=== PATIENT | female | born 1955 | race Caucasian/White ===

== ENCOUNTER 2022-04-07 21:56 | Observation (INO) ==
[2022-04-07] MEDS ORDERED: Ipratropium/Albuterol Neb 3 ML IH ONE ×2 (22:10→23:38)
[2022-04-07] MEDS ORDERED: methylPREDNISolone 125 MG/2 ML VIAL IVP ONE (22:12)
[2022-04-08] MEDS ORDERED: Albuterol 2.5 MG/3 ML NEBULIZER IH PRN ×2 (01:45→04:21)
[2022-04-08 01:46] LABS: Basophils % 0.7 %; Hematocrit 40.7 % (35.3-44.9); Hemoglobin 13.7 g/dL (11.5-15.4); Immature Granulocytes % 0.2 % (0-4); Lymphocytes # 0.2 K/mcL (0.6-4.6); Lymphocytes % 3.7 %; Mean Corpuscular HGB Conc 33.7 g/dL (31.6-35.5); Mean Corpuscular Hemoglobin 30.1 pg (28.0-33.3); Mean Corpuscular Volume 89.5 fL (83.0-100.0); Mean Platelet Volume 10.1 fL (9.4-12.4); Monocytes # 0.1 K/mcL (0.0-1.3); Monocytes % 2.3 %; Neutrophils # 5.3 K/mcL (1.6-8.9); Platelet Count 159 K/mcL (140-400); Red Blood Count 4.55 M/mcL (3.82-4.97); Red Cell Distribution Width 13.2 % (11.5-14.5); Segmented Neutrophils % 93.1 %; White Blood Count 5.7 K/mcL (4.3-11.1)
[2022-04-08 02:01] LABS: BUN/Creatinine Ratio 14 (6-26); Blood Urea Nitrogen 9 mg/dL (8-23); Calcium 9.3 mg/dL (8.6-10.3); Carbon Dioxide 26 mEq/L (23-29); Chloride 99 mEq/L (98-107); Glucose 146 mg/dL (70-105); Osmolality,Calculated 277 (280-300); Potassium 3.5 mEq/L (3.5-5.1); Sodium 133 mEq/L (136-145); eGFR For African Americans > 60 (> 60); eGFR For Non-African Americans > 60 (> 60)
[2022-04-08] MEDS ORDERED: methylPREDNISolone 125 MG/2 ML VIAL IVP SCH ×2 (06:00→09:00)
[2022-04-08 08:04] LABS: Basophils % 0.5 %; Eosinophils % 0.2 %; Hematocrit 41.1 % (35.3-44.9); Hemoglobin 13.8 g/dL (11.5-15.4); Immature Granulocytes % 0.2 % (0-4); Lymphocytes # 0.2 K/mcL (0.6-4.6); Lymphocytes % 5.4 %; Mean Corpuscular HGB Conc 33.6 g/dL (31.6-35.5); Mean Corpuscular Hemoglobin 30.2 pg (28.0-33.3); Mean Corpuscular Volume 89.9 fL (83.0-100.0); Mean Platelet Volume 10.3 fL (9.4-12.4); Monocytes # 0.1 K/mcL (0.0-1.3); Monocytes % 2.2 %; Platelet Count 175 K/mcL (140-400); Red Blood Count 4.57 M/mcL (3.82-4.97); Red Cell Distribution Width 13.2 % (11.5-14.5); Segmented Neutrophils % 91.5 %; White Blood Count 4.1 K/mcL (4.3-11.1)
[2022-04-08 08:12] LABS: Neutrophils # 3.8 K/mcL (1.6-8.9)
[2022-04-08] MEDS: methylPREDNISolone 125 MG/2 ML VIAL IVP SCH ×3 (08:18→20:37)
[2022-04-08] MEDS ORDERED: Budesonide/Formoterol 160/4.5 1 PUFF INH IH SCH (09:00)
[2022-04-08] MEDS ORDERED: levoFLOXacin 500 MG TABLET PO SCH ×2 (09:00)
[2022-04-08] MEDS: Ipratropium/Albuterol Neb 3 ML IH SCH ×3 (10:13→20:38)
[2022-04-08] MEDS: Budesonide/Formoterol 160/4.5 1 PUFF INH IH SCH (10:14)
[2022-04-08] MEDS ORDERED: Ondansetron 4 MG/2 ML VIAL IVP PRN (10:34)
[2022-04-08] MEDS ORDERED: Ondansetron 4 MG/2 ML VIAL ONE (10:35)
[2022-04-08] MEDS ORDERED: Ondansetron ODT 4 MG TAB.RAPDIS SL PRN (10:35)
[2022-04-08] MEDS: levoFLOXacin 250 MG TABLET PO SCH (10:46)
[2022-04-08 12:15] LABS: Bilirubin,Urine Negative (Negative); Blood,Urine Large (Negative); Clarity,Urine Clear (Clear); Color,Urine Yellow (Yellow); Glucose,Urine (UA) Normal (Normal); Ketones,Urine 15 mg/dL (Negative); Leukocyte Esterase,Urine Negative (Negative); Nitrite,Urine Negative (Negative); PH,Urine 5.5 pH Units (5.0-8.0); Protein,Urine >=300 mg/dL (Neg-Trace); Specific Gravity,Urine >= 1.030 (1.010-1.025); Urobilinogen,Urine Normal (Normal)
[2022-04-08 12:22] LABS: Bacteria,Urine Moderate per hpf (None-Few); Mucus,Urine Many per lpf (None-Few); RBC,Urine 15-30 per hpf (0-3)
[2022-04-08 12:23] LABS: Squamous Epithelial Cell,Urine Moderate per hpf (None-Few)
[2022-04-08] MEDS ORDERED: Iopamidol - 370 500 ML MLS IVP ONE (13:46)
[2022-04-08 18:07] LABS: Estimated Average Glucose 108 mg/dl; Hemoglobin A1C 5.4 %
[2022-04-08 19:00] LABS: Adenovirus Not Detected (Not Detect); Coronavirus 229E Not Detected (Not Detect); Coronavirus HKU1 Not Detected (Not Detect); Coronavirus NL63 Not Detected (Not Detect); Coronavirus OC43 Not Detected (Not Detect); Human Metapneumovirus Not Detected (Not Detect); Human Rhinovirus/Enterovirus Not Detected (Not Detect); SARS-CoV-2 Not Detected (Not Detect)
[2022-04-08 19:02] LABS: Bordetella Pertussis Not Detected (Not Detect); Chlamydophila pneumoniae Not Detected (Not Detect); Influenza A Subtype 2009 H1 Not Detected (Not Detect); Influenza B Not Detected (Not Detect); Mycoplasma pneumoniae Not Detected (Not Detect); Parainfluenza Virus 1 Not Detected (Not Detect); Parainfluenza Virus 2 Not Detected (Not Detect); Parainfluenza Virus 3 Not Detected (Not Detect); Parainfluenza Virus 4 Not Detected (Not Detect); Respiratory Syncytial Virus Not Detected (Not Detect)
[2022-04-09] MEDS: Ipratropium/Albuterol Neb 3 ML IH SCH ×2 (03:39→08:11)
[2022-04-09 05:29] LABS: Hematocrit 40.2 % (35.3-44.9); Hemoglobin 13.6 g/dL (11.5-15.4); Mean Corpuscular HGB Conc 33.8 g/dL (31.6-35.5); Mean Corpuscular Volume 88.5 fL (83.0-100.0); Mean Platelet Volume 10.3 fL (9.4-12.4); Platelet Count 178 K/mcL (140-400); Red Blood Count 4.54 M/mcL (3.82-4.97); Red Cell Distribution Width 13.2 % (11.5-14.5); White Blood Count 6.2 K/mcL (4.3-11.1)
[2022-04-09] MEDS ORDERED: *HR* Enoxaparin 40 MG/0.4 ML SYRINGE SQ SCH (06:00)
[2022-04-09 06:11] LABS: BUN/Creatinine Ratio 17 (6-26); Blood Urea Nitrogen 12 mg/dL (8-23); Calcium 9.4 mg/dL (8.6-10.3); Carbon Dioxide 28 mEq/L (23-29); Chloride 99 mEq/L (98-107); Glucose 156 mg/dL (70-105); Magnesium 2.4 mg/dL (1.6-2.6); Osmolality,Calculated 283 (280-300); Potassium 3.5 mEq/L (3.5-5.1); Sodium 135 mEq/L (136-145); eGFR For African Americans > 60 (> 60); eGFR For Non-African Americans > 60 (> 60)
[2022-04-09] MEDS: Budesonide/Formoterol 160/4.5 1 PUFF INH IH SCH (08:09)
[2022-04-09] MEDS: methylPREDNISolone 125 MG/2 ML VIAL IVP SCH ×2 (08:58→13:01)
[2022-04-09] MEDS: levoFLOXacin 250 MG TABLET PO SCH (08:59)
[2022-04-09 11:54] VITALS: BP 146/76; PULSE 74; RESP 18; TEMP 99.7; O2SAT 96
== END 2022-04-09 13:18 | disposition home or self-care (01) ==
LOC: INPGRE 21:56 → EMEROOGRE 21:56 → INPGRE 04-08 02:24
PROVIDERS: ADMIT Family Medicine; ATTEND Family Medicine